=== PATIENT | male | born 1975 | race Caucasian/White ===

== ENCOUNTER 2020-10-10 08:37 | Emergency (ER) | payer BC ==
[~2020-10-10] VITALS: Ht 182.9 cm; Wt 73.6 kg
[2020-10-10 08:44] VITALS: Ht 182.9 cm; Wt 73.6 kg
[2020-10-10] MEDS ORDERED: PROZAC20 MG PO (08:47)
[2020-10-10] MEDS ORDERED: AMOXICILLIN500 M1 PO (08:48)
[2020-10-10] MEDS ORDERED: REMERON15 MG PO (08:48)
[2020-10-10] MEDS ORDERED: HYDROXYZINE HCL50 MG PO (08:49)
[2020-10-10] MEDS ORDERED: XYLOCAINE HCL 2%5 ML UR (08:49)
[2020-10-10 09:13] LABS: BILIRUBIN NEGATIVE (NEGATIVE); KETONE NEGATIVE mg/dL (< 1+); NITRITE NEGATIVE (NEGATIVE); UROBILINOGEN NORMAL mg/dL (< 2)
[2020-10-10 09:24] LABS: BASOPHILS 0.5 % (0-2); EOSINOPHILS 2.9 % (0-7); HEMATOCRIT 43.4 % (42.0-54.0); HEMOGLOBIN 14.8 g/dL (13.5-17.5); LYMPHOCYTES 18.9 % (15-50); MCH 29.2 pg (26.0-34.0); MCV 85.7 fL (80.0-100.0); MEAN PLATELET VOLUME 8.7 fL (7.4-10.4); MONOCYTES 11.4 % (2-11); NEUTROPHILS 66.3 % (40-80); PLATELET COUNT 207 10x3/uL (130-400); RBC 5.06 10x6/uL (4.20-6.10); RDW 14.4 % (11.5-14.5); WBC 7.6 10x3/uL (4.8-10.8)
[2020-10-10 09:30] LABS: ANION GAP 10.8 mmol/L (8-16); CALCIUM 9.3 mg/dL (8.5-10.1); CARBON DIOXIDE 29.4 mmol/L (21.0-32.0); CREATININE - SERUM 1.2 mg/dL (0.6-1.3); POTASSIUM - SERUM 4.2 mmol/L (3.5-5.1)
[2020-10-10 09:36] LABS: ALBUMIN 4.1 g/dL (3.4-5.0); BILIRUBIN - TOTAL 0.36 mg/dL (0.2-1.3); MAGNESIUM - SERUM 2.1 mg/dL (1.8-2.4)
[2020-10-10 09:44] LABS: UDS - AMPHET NEGATIVE QUAL (NEGATIVE); UDS - BARB NEGATIVE QUAL (NEGATIVE); UDS - BENZO NEGATIVE QUAL (NEGATIVE); UDS - COCAINE NEGATIVE QUAL (NEGATIVE); UDS - OPIATE NEGATIVE QUAL (NEGATIVE); UDS - PCP NEGATIVE QUAL (NEGATIVE); UDS - THC POSITIVE QUAL (NEGATIVE)
[2020-10-10 09:47] LABS: SARS-CoV-2 ANTIGEN NEGATIVE- SARS-COV-2 (NEGATIVE)
--- NOTE | 2020-10-10 10:02 | NUR ---
DR HENRY NOTIFIED AND REVIEWED PT'S BEHAVIOR AND ASSESSMENT. PT IS HIGH RISK. SITTER ORDERED AND AT BEDSIDE. SAFETY PLAN INITIATED. RESOURCES GIVEN AND HE VERBALIZES UNDERSTANDING.
[2020-10-10 12:16] VITALS: BP 142/86
== END 2020-10-10 12:18 ==
LOC: D.ER 08:37
PROVIDERS: Family Medicine
DX: R45.851 Suicidal ideations (principal)